=== PATIENT | female | born 1965 | race Caucasian/White ===

== ENCOUNTER 2025-01-31 07:40 | Outpatient (OUT) | payer BC, SELFPAY ==
[2025-01-31 08:06] LABS: Basophils Percent Auto 0.3 % (0.2-2.0); Eosinophils Absolute Auto 0.1 10^3/uL (0.0-0.7); Eosinophils Percent Auto 2.4 % (0.9-7.0); Hematocrit 42.3 % (36.0-48.0); Hemoglobin 14.4 g/dL (12.0-16.0); Immature Granulocytes Abs Auto 0.01 10^3/uL (0.00-0.03); Immature Granulocytes Pct Auto 0.2 % (0.0-0.5); Lymphocytes Absolute Auto 1.8 10^3/uL (1.2-3.8); Lymphocytes Percent Auto 31.6 % (20.5-60.0); Mean Corpuscular Hemoglobin 30.4 pg (26.7-34.0); Mean Corpuscular Volume 89.4 fL (81.0-99.0); Mean Platelet Volume 9.6 fL (9.5-13.5); Monocytes Absolute Auto 0.5 10^3/uL (0.3-0.8); Monocytes Percent Auto 8.7 % (1.7-12.0); Neutrophils Absolute Auto 3.3 10^3/uL (1.4-6.5); Neutrophils Percent Auto 56.8 % (43.0-75.0); Platelet Count 251 10^3/uL (150-450); Red Blood Count 4.73 10^6/uL (4.20-5.40); White Blood Count 5.8 10^3/uL (4.0-11.0)
[2025-01-31 08:41] LABS: Alanine Aminotransferase 30 U/L (14-59); Albumin Globulin Ratio 1.1; Albumin Level 3.6 g/dL (3.4-5.0); Alkaline Phosphatase 60 U/L (46-116); Anion Gap 10.7; Aspartate Amino Transferase 29 U/L (15-37); BUN Creatinine Ratio 17.2; Bilirubin Total 0.4 mg/dL (0.2-1.0); Calcium 9.4 mg/dL (8.5-10.1); Carbon Dioxide 31.6 mmol/L (21.0-32.0); Chloride 104 mmol/L (98-107); Chol HDL Ratio 2.5; Cholesterol 147 mg/dL (<=200); Estimated GFR (African America 54 (>=60 mL/min/1.73m^2); Estimated GFR (Non-African Ame 45 (>=60 mL/min/1.73m^2); Globulin 3.2 g/dL; Glucose 87 mg/dL (74-106); HDL Cholesterol 60 mg/dL (40-60); Potassium 4.3 mmol/L (3.5-5.1); Sodium 142 mmol/L (136-145); Thyroid Stimulating Hormone 2.553 uIU/mL (0.358-3.740); Total Protein 6.8 g/dL (6.4-8.2); Triglycerides 60 mg/dL (<=150)
== END 2025-01-31 07:41 | disposition home or self-care (01) ==
PROVIDERS: PCP Internal Medicine; Visit Provider Internal Medicine
DX: Z00.00 Encounter for general adult medical examination without abnormal findings (principal)
CPT/HCPCS: 36415; 80053; 80061; 84443; 85025

== ENCOUNTER 2025-04-05 09:36 | Outpatient (OUT) | payer BC, SELFPAY ==
--- OUTSIDE RECORDS SUMMARY | 2025-03-05 06:07 | XMS_ITS | Continuity of Care Document ---
Author Organization [facility] Address [address] [place] [address] Phone Care Team Providers Care Consumer Banker Name Role Phone Jay Baltazar Unavailable Unavailable Procedures Procedure Date IMMUNIZATION ADMIN, EACH ADD YELLOW FEVER VACCINE, SC IMMUNIZATION ADMIN HEP A/HEP B VACC, ADULT IM Advance Directives Directive Yes / No Effective Date File Name No Information Encounters Encounter Description Practice Location Reason(s) For Visit Diagnoses Date Provider Providers Copied on Encounter [facility], [address], [place], [id number], [place] tel:[phone] [facility] No Information Alejokj DUQUE Jay. [address], [place], [id number], [place]. tel:[phone] Family History Family Member Type Diagnosis Age At Onset No Information Immunizations Vaccine Date Status Comments Yellow Fever administered Source: New Imm unization Record Hep A and Hep B administered Source: New Immunization Record Payers Payer name Insurance type Covered libertarian ID Authornirava imeldacha(s) Gildardo GOPI [id number] Self Pay Cap 09 Social History Type Description Quantity Date Captured Comments Alcohol Use Details Unknown Caffeine Use Details Unknown Tobacco Use Status No Information Smoking Status No Information Sex Female Chief Complaint And Reason For Visit No Information Reason For Referral Reason For Referral No Information Plan Of Treatment Date Type Action Status Goal PRAPARE ASSESSMENT. Due on J due Goal Hepatitis C screening. Due o n due Goal FIT. Due on due Goal Influenza vaccine. Due on Ju due Goal Mammogram. Due on due Goal Tdap Vaccine. Due on 2024 due Goal Tdap. Due on due Goal Zoster vaccine (). Due on due Goal Colonoscopy. Due on due Goal Unhealthy drug use screening . Due on due Goal Lipid panel. Due on due Goal Depression screening. Due on due Goal CT-Colonography. Due on due Goal FOBT. Due on due Goal FIT-DNA. Due on due Goal Hep A. Due on du e Goal HPV. Due on due Appointment Josephine Cates BOOKED History Of Present Illness Encounter Date Complaint History Of Prese nt Illness No Information Functional Status Date Functional Assessmen t No Information Instructions Date Instruction Additional Infor mation No Information Assessments Type Assessment Date No Information Patient Care Teams Name Effective Dates (start - stop) Status Members No Information
--- OUTSIDE RECORDS SUMMARY | 2025-04-05 09:39 | XMS_ITS | Encounter Summary ---
Author Organization [facility] Address [address] [place] [address] Care Team Providers Care Pediatric Oncology Nurse Name Role Phone Desmond Oneill DO Primary Care Provider [phone] Encounter Details Date Type Department Care Team (Late Contact Info) Description 12/03/2020 Transcribe Orders [facility] [address] [place] [id number] Daniella Pedraza [address] [place] [address] Other screening mammogram (Primary Dx) Social History Tobacco Use Types Packs/Day Years Used Date Smoking Tobacco: Never Smokeless Tobacco: Never Alcohol Use Standard Drinks/Week Comments Yes 0 (1 standard drink = 0.6 oz pur e alcohol) Rarely PHQ-2 Answer Date Recorded PHQ-2 Score 0 01/04/2019 Comments No Sex and Gender Information Value Date Recorded Sex Assigned at Not on file Legal Sex Female 6:42 PM EST Gender Identity Not on file Sexual Orientation Not on file documented as of this encounter Plan of Treatment Upcoming Encounters Date Type Department Care Team (Late st Contact Info) Description 06/19/2025 10:45 AM EDT Office Visit [facility] Part of [address] [place] [address] Daniella Pedraza DO [address] [place] [address] [address] [place] [address] yearly documented as of this encounter Visit Diagnoses Diagnosis Other screening mammogram- Primary documented in this encounter Care Teams Pediatric Oncology Nurse Relationship Specialty Start Date End Date Desmond Oneill DO PCP - General Internal Medicine 07/22/16 documented as of this encounter
--- OUTSIDE RECORDS SUMMARY | 2025-04-05 09:39 | XMS_ITS | Clinical Summary ---
Author Organization [facility] Address [address] [place] [address] Care Team Providers Care Avionics Electrical Engineer Name Role Phone Desmond Oneill DO Primary Care Provider [phone] Allergies No known active allergies Medications Multiple Vitamins-Minera ls (MULTIVITAMIN & MINERAL PO) Take by mouth Acti ve Calcium Carbonate-Vit D-Min (CALTRATE 600+D PLUS PO) Take by mouth A ctive BIOTIN PO Take by mouth Active Estradiol (VAGIFEM) 10 M[address] tablet [address] 1 tablet vaginally Twice a Week 24 tablet 3 4 Active estradiol (ESTRACE) 2 MG tablet Take 1 tablet by mouth daily 90 tablet 3 5 Active Active Problems No known active problems Encounters Date Type Department Care Team Description 02/22/2025 Telephone [facility] Part of [address] [place] [address] Daniella Pedraza DO Other 01/24/2025 Telephone [facility] Part [address] [place], [place] [id number] Daniella Pedraza DO Medication Reaction from Last 3 Months Family History Medical History Relation Name Comments Diabetes Father Don Heart Attack Father Don Heart Disease Father Don Stroke Maternal Grandmother Mercy Breast Cancer Mother Toyin Cancer Mother Toyin Breast. Heart Disease Mother Toyin Hypertension Mother Toyin Osteoporosis Mother Toyin Heart Attack Paternal Grandfather Relation Name Status Comments Father Don Maternal Grandfather Maternal Grandmother Mercy Mother Toyin Alive Paternal Grandfather Paternal Grandmother Sister Alive Social History Tobacco Use Types Packs/Day Years Used Date Smoking Tobacco: Never Smokeless Tobacco: Never Tobacco Cessation:Counseling Given: Not Answered Alcohol Use Standard Drinks/Week Comments Yes 0 (1 standard drink = 0.6 oz pur e alcohol) Rarely Overall Financial Resource Strain (CARDIA) Answe r Date Recorded How hard is it for you to pa y for the very basics like food, housing, medical care, and heating? Not hard at all 06/13/2024 PHQ-2 Answer Date Recorded PHQ-9 Total Score 0 02/12/2024 Hunger Vital Sign Answer Date Recorded Within the past 12 months, y ou worried that your food would run out before you got the money to buy more. Never true 06/13/20 24 Within the past 12 months, t he food you bought just didn't last and you didn't have money to get more. Never true 06/13/2024 PRAPARE - Transportation Answer Date Re corded Lack of Transportation (Medical) Not on file 06/13/2024 In the past 12 months, has l ack of transportation kept you from meetings, work, or from getting things needed for daily living? No 06/13/2024 Housing Stability Vital Sign Answer Mt e Recorded Unable to Pay for Housing in the Last Year Not o n file 06/13/2024 Number of Times Moved in the Last Year Not on fi le 06/13/2024 At any time in the past 12 m [facility], were you homeless or living in a senior living (including now)? No 06/13/2024 Food Insecurity Answer Date Recorded Within the past 12 months, y ou worried that your food would run out before you got the money to buy more. 1 06/13/2024 Within the past 12 months, t he food you bought just didn't last and you didn't have money to get more. 1 06/13/2024 Comments No Sex and Gender Information Value Date Recorded Sex Assigned at Not on file Legal Sex Female 6:42 PM EST Gender Identity Not on file Sexual Orientation Not on file Last Filed Vital Signs Vital Sign Reading Time Taken Comments Blood Pressure 128/72 06/13/2024 11:42 AM EDT Pulse 76 09/23/2016 12:07 PM EST Temperature 37.3 C (99.1 F) 09/23/2016 12:07 PM EST Respiratory Rate 20 09/23/2016 12:07 PM EST Oxygen Saturation - - Inhaled Oxygen Concentration - - Weight 61.2 kg (135 lb) 06/13/2024 11:42 AM EDT Height 167.6 cm (5' 6 ) 06/13/2024 11:42 AM EDT Body Mass Index 21.79 06/13/2024 11:42 AM EDT Plan of Treatment Upcoming Encounters Date Type Department Care Team (Late st Contact Info) Description 06/19/2025 10:45 AM EDT Office Visit [facility] Part of [address] [place] [id number] Daniella Pedraza, DO [address] [place] [address] [address] [place] [address] yearly Health Maintenance Due Date Last Done Comments HIV screen 12/31/1979 Hepatitis C screen 1982 DTaP/Tdap/Td vaccine (1 - Tdap) 12/31/1983 Colonoscopy 2009 Colorectal Cancer Screen 2009 FIT/FOBT: Average risk 2009 Fecal-DNA (Cologuard): Average risk 2009 Sigmoidoscopy/CT colonography 2009 Pneumococcal 50+ years Vaccine (1 of 1 - PCV) 2014 Shingles vaccine (1 of 2) 2014 COVID-19 Vaccine (3 - season) 2024 01/28/2021, 01/06/2021 Depression Screen 02/11/2025 02/12/2024 Flu vaccine (#1) 05/04/2025 08/25/2023, 02/2022, 08/03/2021, Additional history exists Breast cancer screen 06/13/2025 06/13/2024, 05/24/2023, 05/19/2022, Additional history exists Lipids 09/14/2027 09/14/2022 Respiratory Syncytial Virus (RSV) or age 60 yrs+ (1 - 1-dose 75+ series) 12/31/2039 Hepatitis A vaccine Aged Out No longe r eligible based on patient's age to complete this topic Hepatitis B vaccine Aged Out No longe r eligible based on patient's age to complete this topic Hib vaccine Aged Out No longer eligi ble based on patient's age to complete this topic Meningococcal (ACWY) vaccine Aged Out No longer eligible based on patient's age to complete this topic Meningococcal B vaccine Aged Out No l onger eligible based on patient's age to complete this topic Polio vaccine Aged Out No longer elig ible based on patient's age to complete this topic Procedures Procedure Name Priority Date/Time Associated Diagnosis Comments RADHA PENNY DIGITAL SCREEN SELF REFERRAL W OR WO CAD BILATERAL Routine 06/13/2024 11:04 AM EDT Encounter for screening mammogram for malignant neoplasm of breast LIPID PANEL Routine 09/14/2022 from Last 3 Months or Most Recently Relevant to Health Maintenance Results * RADHA PENNY DIGITAL SCREEN SELF REFERRAL W OR WO CAD BILATERAL (06/13/2024 11:04 AM EDT) Anatomical Region Laterality Modality Breast Bilateral Mammography 06/13/2024 11:1 9 AM EDT Impressions 06/13/2024 11:20 AM EDT No mammographic evidence of malignancy BIRADS: BIRADS - CATEGORY 1 Negative. Normal interval follow-up is recommended in 12 months. OVERALL ASSESSMENT - NEGATIVE A letter of notification will be sent to the patient regarding the results. [employer] recommends annual mammograms for women 40 years and older. Performing Facility: [place] [id number] Narrative 06/13/2024 11:20 AM EDT EXAMINATION: SCREENING DIGITAL BILATERAL MAMMOGRAM WITH TOMOSYNTHESIS, 06/13/2024 TECHNIQUE: Screening mammography of the bilateral breasts was performed with tomosynthesis. 2D standard and 3D tomosynthesis combination imaging performed through both breasts in the MLO and CC projection. Computer aided detection was utilized in the interpretation of this exam. COMPARISON: May 24, 2023 and May 19, 2022 HISTORY: Screening. FINDINGS: The breasts are heterogeneously dense which can obscure small masses. There is no dominant mass architectural distortion or concerning grouping of microcalcification in either breast. Daniella Dan [facility] IMG MAMMOGRAPHY ORDER RODOLFO Final Result * Lipid Panel (09/14/2022) BLOOD SPECIMEN / Unknown Historical Provider CHEMISTRY ORDERABLES Evie l Result from Last 3 Months or Most Recently Relevant to Health Maintenance [facility] Care Teams Avionics Electrical Engineer Relationship Specialty Start Date End Date Desmond Oneill DO PCP - General Internal Medicine 07/22/16
--- OUTSIDE RECORDS SUMMARY | 2025-04-05 09:39 | XMS_ITS | Clinical Summary ---
Author Organization [facility] Address [facility] [place] [address] Care Team Providers Care Front Desk Associate Name Role Phone Desmond Oneill DO Primary Care Provider [phone] Allergies Active Allergy Reactions Criticality Noted Date Comments Amoxicillin-Pot Clavulanate GI Intolerance 02/01 Medications estradioL (ESTRACE) 0.01 % (0.1 mg/gram) vaginal cream Insert 1 g into the vagina twice weekly . 1 Active multivitamin with minerals tablet Take by mouth . Active doxycycline hyclate (VIBRAMYCIN) 50 MG capsule Take 1 (one) capsule (50 mg total) by mouth 2 (two) times a day . 60 capsule 1 2 Active metroNIDAZOLE (METROCREAM) 0.75 % cream Apply topically 2 (two) times a day . 45 g 2 Active Active Problems No known active problems Family History Medical History Relation Comments Cancer Mother Relation Status Comments Father Alive Mother Alive Social History Tobacco Use Types Packs/Day Years Used Date Smoking Tobacco: Never Smokeless Tobacco: Never Comments Unknown Sex and Gender Information Value Date Recorded Sex Assigned at Not on file Legal Sex Female 9:05 AM EDT Gender Identity Not on file Sexual Orientation Not on file Plan of Treatment Health Maintenance Due Date Last Done Comments CT Colonography 1964 Colonoscopy 1964 Colorectal Cancer Screening/Monitoring 1964 Fecal DNA 1964 Fecal occult blood test (FOBT,FIT) 1964 Tetanus: Every 10yrs 1964 Depression Screening/Follow- Up (PHQ-2/9) 1976 HIV Screening 12/31/1979 Hepatitis C Screening 1982 Pap Smear 1985 Cervical Cancer Screening 1994 HPV/Cotest 1994 Pneumococcal Vaccine: Age 50 + (1 of 1 - PCV) 2014 Zoster Vaccines (1 of 2) 2014 Wellness Visit 03/11/2022 03/11/2021, 08/04, 07/19/2018, Additional history exists COVID-19 Vaccine (3 - 2023-2 5 season) 2024 01/28/2021, 01/06/2021 Influenza Vaccine (#1) 2025 , 08/04/2020, 08/22/2019, Additional history exists Respiratory Syncytial Virus Immunization: Risk, 60-74 Risk, or 75+ (1 - 1-dose 75+ series) 12/31/2039 Mammogram Discontinued 03/11/2021, 09/03, 09/15/2018 Insurance [employer]/PREF/HMO/PPO Care Teams Front Desk Associate Relationship Specialty Start Date End Date Desmond Oneill DO [address] [place] [address] [place] [address] PCP - General Internal Medicine 02/11/16
--- OUTSIDE RECORDS SUMMARY | 2025-04-05 09:39 | XMS_ITS | Encounter Summary ---
Author Organization [facility] Address [address] [place] [address] Care Team Providers Care Artists' Booking Representative Name Role Phone Desmond Oneill DO Primary Care Provider [phone] Encounter Details Date Type Department Care Team (Late Contact Info) Description 02/21/2024 Orders Only [facility] [address] [place] [address] Provider, MD Ranjeet Social History Tobacco Use Types Packs/Day Years Used Date Smoking Tobacco: Never Smokeless Tobacco: Never Alcohol Use Standard Drinks/Week Comments Yes 0 (1 standard drink = 0.6 oz pur e alcohol) Rarely PHQ-2 Answer Date Recorded PHQ-9 Total Score 0 02/12/2024 Food Insecurity Answer Date Recorded Within the past 12 months, y ou worried that your food would run out before you got the money to buy more. 98 02/15/2023 Within the past 12 months, t he food you bought just didn't last and you didn't have money to get more. 98 02/15/2023 Comments No Sex and Gender Information Value Date Recorded Sex Assigned at Not on file Legal Sex Female 6:42 PM EST Gender Identity Not on file Sexual Orientation Not on file documented as of this encounter Plan of Treatment Upcoming Encounters Date Type Department Care Team (Late st Contact Info) Description 06/19/2025 10:45 AM EDT Office Visit [facility] [address] [place] [address] Daniella Mosquera, DO [address] [facility] [address] [place] [address] yearly documented as of this encounter Procedures Procedure Name Priority Date/Time Associated Diagnosis Comments CBC Routine 01/05/2024 4:45 PM EDT documented in this encounter Results * CBC (01/05/2024 4:45 PM EDT) Blood BLOOD SPECIMEN / Unknown us Historical Provider HEMATOLOGY ORDERABLES Fin al Result documented in this encounter Visit Diagnoses Not on filedocumented in this encounter Care Teams Artists' Booking Representative Relationship Specialty Start Date End Date Dsemond Oneill DO PCP - General Internal Medicine 07/22/16 documented as of this encounter
--- OUTSIDE RECORDS SUMMARY | 2025-04-05 09:39 | XMS_ITS | Clinical Summary ---
Author Organization [facility] Address [id number] [address] [place] [address] Care Team Providers Care Earth Moving Machine Operator Name Role Phone Desmond Oneill DO Primary Care Provider [phone] Medications HYDROcodone-tommie taminophen (NORCO) 5-325 mg per tablet Take 2 tablets by mouth every 6 (six) hours as needed for pain (1-2 every 6 hours prn pain). Max Daily Amount: 8 tablets 20 tablet 0 09/08/2016 Active ibuprofen (ADVIL,MOTRIN) 600 mg tablet Take 1 tablet (600 mg total) by mouth every 6 (six) hours as needed for pain. 30 tablet 0 09/08/2016 Active Social History Tobacco Use Types Packs/Day Years Used Date Smoking Tobacco: Never Assessed Childcare Answer Date Recorded Childcare Unknown 03/13/2019 Employment Answer Date Recorded Employment Unknown 03/13/2019 Purpose - Life Answer Date Recorded Purpose and direction in life Unknown Comments Unknown Sex and Gender Information Value Date Recorded Sex Assigned at Not on file Legal Sex Female 4:37 PM EDT Gender Identity Not on file Sexual Orientation Not on file Last Filed Vital Signs Vital Sign Reading Time Taken Comments Blood Pressure 120/68 02/14/2015 9:09 AM EDT Pulse - - Temperature - - Respiratory Rate - - Oxygen Saturation - - Inhaled Oxygen Concentration - - Weight 56.7 kg (125 lb) 02/14/2015 9:09 AM EDT Height 167.6 cm (5' 6 ) 02/14/2015 9:09 AM EDT Body Mass Index 20.18 02/14/2015 9:09 AM EDT Plan of Treatment Health Maintenance Due Date Last Done Comments Depression Screening 1976 Tobacco Screening 1976 Adult BMI Screening 1982 DTaP,Tdap and Td Vaccines (1 - Tdap) 12/31/1983 Zoster (Shingles) Vaccine (1 of 2) 2014 Pap Smear 02/01/2017 02/01/2014 Influenza Vaccine 06/04/2025 Medical Devices Not on file Procedures Procedure Name Priority Date/Time Associated Diagnosis Comments HIGH RISK HPV W/CHEN Routine 02/01/2014 12:00 PM EDT from Last 3 Months or Most Recently Relevant to Health Maintenance Results * High risk HPV w/chen (02/01/2014 12:00 PM EDT) Hpv specimen type ThinPrep 02/05/2014 1:33 PM EDT [facility] Hpv 16 Negative Negative 02/07/2014 1:05 PM EDT [facility] Hpv 18 Negative Negative 02/07/2014 1:05 PM EDT [facility] Other high risk hpv Negative Negative 02/07/2014 1:05 PM EDT [facility] Comment: HPV types 31,33,35,39,45,52,56,58,59,66 and 68 DNA were undetectable. 02/01/2014 12:0 0 PM EDT 02/05/2014 1:33 PM EDT Jorden Morrow MD LAB BLOOD ORDERABLES Final Resul t [facility] from Last 3 Months or Most Recently Relevant to Health Maintenance Insurance [facility] Care Teams Earth Moving Machine Operator Relationship Specialty Start Date End Date Desmond Oneill DO [address] [place], [place] [id number] PCP - General 09/08/16
[2025-04-05 10:23] LABS: Anion Gap 10.3; Blood Urea Nitrogen 22.0 mg/dL (7.0-18.0); Calcium 9.4 mg/dL (8.5-10.1); Carbon Dioxide 29.8 mmol/L (21.0-32.0); Chloride 103 mmol/L (98-107); Estimated GFR (African America >60 (>=60 mL/min/1.73m^2); Estimated GFR (Non-African Ame >60 (>=60 mL/min/1.73m^2); Glucose 91 mg/dL (74-106); Potassium 4.1 mmol/L (3.5-5.1); Sodium 139 mmol/L (136-145)
[2025-04-05 10:24] LABS: Glucose Urine UA NEGATIVE (NEGATIVE)
== END 2025-04-05 09:37 | disposition home or self-care (01) ==
LOC: LAB 09:37
PROVIDERS: PCP Internal Medicine; Visit Provider Internal Medicine
DX: N18.31 Chronic kidney disease, stage 3a (principal)
CPT/HCPCS: 36415; 80048; 81003